=== PATIENT | male | born 1940 | race Caucasian/White ===

== ENCOUNTER 2025-03-30 13:34 | Emergency (ER) | payer MEDICARE ==
[~2025-03-30] VITALS: Ht 182.9 cm; Wt 80.0 kg
[2025-03-30 13:50] LABS: BASOPHILS 0.3 % (0.2-1.2); EOSINOPHILS 2.2 % (0.8-7.0); LYMPHOCYTES 11.8 % (21.8-53.1); MCH 31.0 PG (25.7-32.2); MCHC 34.3 g/dL (32.3-36.5); MCV 90.6 fL (79.0-92.2); MONOCYTES 9.4 % (5.3-12.2); NEUTROPHILS 75.9 % (34.0-67.9); RBC 5.09 M/uL (4.63-6.08)
[2025-03-30 14:10] LABS: ALT (SGPT) 25.0 U/L (14-59); AST (SGOT) 14.0 U/L (15-37); GLOMERULAR FILTRATION RATE,EST 53.0 mL/min (>60); PROTEIN, TOTAL 6.1 g/dL (6.4-8.2); UREA NITROGEN 26.0 mg/dL (7-18)
[2025-03-30] MEDS ORDERED: JARDIANCE10 MG PO (15:27)
[2025-03-30] MEDS ORDERED: ROSUVASTATIN CAL5 MG PO (15:28)
[2025-03-30] MEDS ORDERED: CARVEDILOL25 MG PO (15:29)
[2025-03-30] MEDS ORDERED: CILOSTAZOL50 MG PO (15:30)
[2025-03-30] MEDS ORDERED: LOSARTAN POTASS50 MG PO (15:38)
[2025-03-30] MEDS ORDERED: PREDNISOLONE ACE5 M1 OP (15:39)
[2025-03-30] MEDS ORDERED: VENTOLIN HFA18 GM INH (15:40)
[2025-03-30] MEDS ORDERED: OPTH ONE (20:14)
[2025-03-30] MEDS ORDERED: PILOCARPINE HCL 2% ONE (20:14)
[2025-03-30] MEDS ORDERED: PILOCARPINE HCL 2% OU ONE (20:15)
[2025-03-30] MEDS ORDERED: OPTH OU ONE (20:15)
[2025-03-30] MEDS ORDERED: acetaZOLAMIDE sodium 500 MG/5 ML VIAL IV ONE (20:15)
[2025-03-30] MEDS ORDERED: HYDROmorphone HCL 1 MG/ML SYR IV PRN (21:30)
[2025-03-30 22:30] VITALS: BP 201/70
--- OUTSIDE RECORDS SUMMARY | 2025-03-30 22:55 | XMS ---
PreManage Notification: SHE GARDNER [employer] In[employer] Events No recent Security Events currently on file CRITERIA MET - [facility] - 2 Visits in 30 Days CARE PROVIDERS JASON COVARRUBIAS Nurse Practitioner: Family Current PHONE: [phone] LISA WEAVER Internal Medicine Current PHONE: Unknown DEZ BISHOP Physician Mental Hygienist Timmy MCCLELLAND PHONE: [phone] MAR KNOWLES Nurse Practitioner: [facility] PHONE: [phone] Baldo has no Care Guidelines for this patient. Katarzyna VISIT COUNT (12 MO.) 4 Dmitriy Dalton ([facility]) 1 PRINCE Poe TOTAL 5 NOTE: Visits indicate total known visits. ED/UCC VISIT TRACKING (12 MO.) 03/30/2025 13:36 [facility] [place] TYPE: Emergency COMPLAINT: - PAIN 03/23/2025 11:05 Dmitriy YAN[facility] [place] ([facility]) TYPE: Emergency DIAGNOSES: - Adult failure to thrive - Other specified metabolic disorders - Type 2 diabetes mellitus without complications - Unspecified glaucoma - Blood Sugar complaint - Elevated Blood Sugar (Asymptomatic) 03/21/2025 11:27 Dmitriy [facility] ([facility]) TYPE: Emergency DIAGNOSES: - Acute angle-closure glaucoma, bilateral - Conjunctival hemorrhage, bilateral - Followup Medical Problem - Steroid Infusion 03/19/2025 18:24 Dmitriy [facility] ([facility]) TYPE: Emergency DIAGNOSES: - Conjunctival hemorrhage, bilateral - Essential (primary) hypertension - Thrombocytopenia, unspecified - Unspecified glaucoma - eye pressure - Followup Medical Problem 03/18/2025 07:09 Dmitriy [facility] ([facility]) TYPE: Emergency DIAGNOSES: - Urticaria, unspecified - Rash INPATIENT VISIT TRACKING (12 MO.) 03/23/2025 11:05 Dmitriy YANES [place] ([employer] ) TYPE: Internal Medicine DIAGNOSES: - Adult failure to thrive - Other specified metabolic disorders - Type 2 diabetes mellitus without complications - Unspecified glaucoma [email or web address]
== END 2025-03-30 22:53 | disposition short-term general hospital (02) ==
LOC: ED 13:34
PROVIDERS: Emergency Medicine
DX: H40.053 Ocular hypertension, bilateral (principal); Z91.030 Bee allergy status; Z79.899 Other long term (current) drug therapy
CPT/HCPCS: 36415; 70450; 80053; 85025; 96374; 96375; 99285-25; J1120; J1171